=== PATIENT | male | born 1970 | race Hispanic/Latino ===

== ENCOUNTER 2019-07-15 07:46 | Emergency (ER) | payer OTHER ==
[2019-07-15 08:42] LABS: BASOPHILS % (AUTO) 0.8 % (0.0-5.0); HEMATOCRIT 39.7 % (42-54); LYMPHOCYTES % (AUTO) 31.9 % (21.0-51.0); MEAN CORPUSCULAR HEMOGLOBIN 32.5 pg (27.0-33.0); MEAN CORPUSCULAR HGB CONC 34.6 g/dL (32.0-36.0); MEAN CORPUSCULAR VOLUME 93.9 fL (79-99); MONOCYTES % (AUTO) 10.4 % (3.0-13.0); NEUTROPHILS % (AUTO) 53.9 % (40.0-77.0); PLATELET COUNT (AUTO) 167 K/uL (130-400); RED BLOOD CELL COUNT(AUTO) 4.23 MIL/uL (4.50-6.20); RED CELL DISTRIBUTION WIDTH 12.6 % (11.0-15.5); WHITE BLOOD COUNT (AUTO) 6.1 K/uL (4.8-10.8)
[2019-07-15 08:50] LABS: POTASSIUM 4.2 mmol/L (3.5-5.1)
[2019-07-15 08:57] LABS: ALBUMIN 3.6 g/dL (3.5-5.0); BILIRUBIN,DIRECT 0.1 mg/dL (0.0-0.3); BILIRUBIN,TOTAL 0.6 mg/dL (0.2-1.0)
[2019-07-15 09:05] LABS: INR 0.95 (0.85-1.15); PARTIAL THROMBOPLASTIN TIME 24.3 SEC (26.3-35.5)
== END 2019-07-15 10:47 | disposition home or self-care (01) ==
LOC: EDH 07:46
DX: G62.89 Other specified polyneuropathies (principal); I10 Essential (primary) hypertension; E11.9 Type 2 diabetes mellitus without complications; Z72.0 Tobacco use
CPT/HCPCS: 36415; 80048; 80076; 82550; 85025; 85610; 85730; 93005; 93925

== ENCOUNTER 2020-07-13 10:44 | Emergency (ER) | payer OTHER ==
[2020-07-13 11:23] LABS: BASOPHILS % (AUTO) 0.9 % (0.0-5.0); EOSINOPHILS % (AUTO) 1.2 % (0.0-8.0); HEMATOCRIT 42.1 % (42-54); LYMPHOCYTES % (AUTO) 29.9 % (21.0-51.0); MEAN CORPUSCULAR HEMOGLOBIN 30.8 pg (27.0-33.0); MEAN CORPUSCULAR HGB CONC 34.9 g/dL (32.0-36.0); MEAN CORPUSCULAR VOLUME 88.1 fL (79-99); MONOCYTES % (AUTO) 11.6 % (3.0-13.0); PLATELET COUNT (AUTO) 187 K/uL (130-400); RED BLOOD CELL COUNT(AUTO) 4.78 MIL/uL (4.50-6.20); RED CELL DISTRIBUTION WIDTH 11.8 % (11.0-15.5); WHITE BLOOD COUNT (AUTO) 6.9 K/uL (4.8-10.8)
[2020-07-13 11:31] LABS: CREATININE 1.1 mg/dL (0.5-1.5); POTASSIUM 4.2 mmol/L (3.5-5.1)
[2020-07-13 11:32] LABS: HEMOGLOBIN A1C 10.6 % (4.0-6.0)
[2020-07-13 11:35] LABS: ALBUMIN 4.2 g/dL (3.5-5.0); BILIRUBIN,TOTAL 0.6 mg/dL (0.2-1.0); TOTAL PROTEIN, SERUM 8.1 g/dL (6.0-8.3)
== END 2020-07-13 12:29 | disposition home or self-care (01) ==
LOC: EDH 10:44
DX: E11.40 Type 2 diabetes mellitus with diabetic neuropathy, unspecified (principal); M54.16 Radiculopathy, lumbar region; I10 Essential (primary) hypertension; Z90.49 Acquired absence of other specified parts of digestive tract; Z72.0 Tobacco use
CPT/HCPCS: 36415; 80053; 82948; 83036; 85025

== ENCOUNTER 2021-01-29 12:18 | Emergency (ER) | payer OTHER ==
[~2021-01-29] VITALS: Ht 182.9 cm; Wt 83.9 kg
[2021-01-29] MEDS ORDERED: BISACODYL 10 MG SUPP.RECT RC ONE (15:00)
[2021-01-29 15:41] VITALS: BP 142/94
[2021-01-29] MEDS ORDERED: POLY17PO4 PO (17:03)
[2021-01-29 17:19] VITALS: BP 159/90
== END 2021-01-29 17:22 | disposition home or self-care (01) ==
LOC: EDH 12:18
DX: K59.00 Constipation, unspecified (principal); E11.40 Type 2 diabetes mellitus with diabetic neuropathy, unspecified; Z87.891 Personal history of nicotine dependence; F19.10 Other psychoactive substance abuse, uncomplicated
CPT/HCPCS: 99282

== ENCOUNTER 2021-02-07 10:59 | Inpatient (IN) | payer OTHER ==
[~2021-02-07] VITALS: Ht 182.9 cm; Wt 78.2 kg
[~2021-02-07 10:59] MED LIST: POLY17PO4 PO
[2021-02-07 11:01] VITALS: BP 116/88
[2021-02-07 11:20] LABS: BASOPHILS % (AUTO) 0.8 % (0.0-5.0); EOSINOPHILS % (AUTO) 1.4 % (0.0-8.0); HEMATOCRIT 45.8 % (42-54); LYMPHOCYTES % (AUTO) 27.2 % (21.0-51.0); MEAN CORPUSCULAR HEMOGLOBIN 29.7 pg (27.0-33.0); MEAN CORPUSCULAR HGB CONC 33.8 g/dL (32.0-36.0); MEAN CORPUSCULAR VOLUME 87.7 fL (79-99); MONOCYTES % (AUTO) 9.1 % (3.0-13.0); PLATELET COUNT (AUTO) 216 K/uL (130-400); RED BLOOD CELL COUNT(AUTO) 5.22 MIL/uL (4.50-6.20); WHITE BLOOD COUNT (AUTO) 8.5 K/uL (4.8-10.8)
[2021-02-07 11:27] LABS: CREATININE 1.2 mg/dL (0.5-1.5); POTASSIUM 4.8 mmol/L (3.5-5.1)
[2021-02-07 11:32] LABS: ALBUMIN 4.2 g/dL (3.5-5.0); BILIRUBIN,TOTAL 0.9 mg/dL (0.2-1.0); TOTAL PROTEIN, SERUM 8.8 g/dL (6.0-8.3)
[2021-02-07] MEDS ORDERED: NACL 0.9% 1000ML 1,000 ML IV SCH (13:30)
[2021-02-07] MEDS ORDERED: MORPHINE 2 MG SYG IVP SCH (13:30)
[2021-02-07] MEDS ORDERED: ONDANSETRON 4MG INJ IVP SCH (13:30)
[2021-02-07] MEDS ORDERED: LACTULOSE 20 GM/30 ML UDCUP PO PRN (14:30)
[2021-02-07] MEDS ORDERED: ACETAMINOPHEN 325 MG TAB PO PRN ×2 (14:30)
[2021-02-07] MEDS: NACL 0.9% 1000ML 1,000 ML IV SCH ×2 (14:40→16:06)
[2021-02-07] MEDS: ONDANSETRON 4MG INJ IV PRN (14:40)
[2021-02-07] MEDS ORDERED: MORPHINE 2 MG SYG IVP PRN (14:45)
[2021-02-07 14:56] LABS: HEMOGLOBIN A1C 11.9 % (4.0-6.0)
[2021-02-07 14:57] LABS: CHOLESTEROL 239 mg/dL (<200); HDL CHOLESTEROL 55 mg/dL (29-71); LDL DIRECT 151 mg/dL (0-99); TRIGLYCERIDES 162 mg/dL (30-200)
[2021-02-07] MEDS ORDERED: NACL 0.9% 1000ML 1,000 ML IV ONE (16:02)
[2021-02-07 16:24] VITALS: BP 144/88
[2021-02-07] MEDS ORDERED: LOSA50TA64 PO (17:11)
[2021-02-07] MEDS ORDERED: GABA300S PO (17:11)
[2021-02-07] MEDS ORDERED: METF-444 PO (17:11)
[2021-02-07 17:30] VITALS: BP 162/96
[2021-02-07 19:07] VITALS: BP 144/88
[2021-02-07] MEDS: FAMOTIDINE 20MG VIAL IV SCH (20:57)
[2021-02-07] MEDS ORDERED: INSULIN GLARGINE 100 UNITS/ML 10 ML VIAL SQ SCH (21:00)
[2021-02-07] MEDS: INSULIN HUMULIN R 100 UNIT/ML 3ML SQ SCH (21:07)
[2021-02-07 23:39] VITALS: BP 136/82
[2021-02-08 00:17] LABS: AMPHET/METH SCREEN,URINE NEGATIVE (NEGATIVE); BARBITURATE SCREEN, URINE NEGATIVE (NEGATIVE); BENZODIAZEPINES SCREEN,URINE NEGATIVE (NEGATIVE); CANNABINOID SCREEN,URINE POSITIVE (NEGATIVE); COCAINE SCREEN,URINE POSITIVE (NEGATIVE); OPIATE SCREEN,URINE NEGATIVE (NEGATIVE); PHENCYCLIDINE SCREEN,URINE NEGATIVE (NEGATIVE)
[2021-02-08] MEDS: ONDANSETRON 4MG INJ IV PRN ×3 (03:08→09:48)
[2021-02-08 03:20] VITALS: BP 142/85
[2021-02-08 03:50] LABS: BASOPHILS % (AUTO) 0.8 % (0.0-5.0); EOSINOPHILS % (AUTO) 1.9 % (0.0-8.0); HEMATOCRIT 39.7 % (42-54); LYMPHOCYTES % (AUTO) 34.6 % (21.0-51.0); MEAN CORPUSCULAR HEMOGLOBIN 30.9 pg (27.0-33.0); MEAN CORPUSCULAR HGB CONC 34.8 g/dL (32.0-36.0); NEUTROPHILS % (AUTO) 52.3 % (40.0-77.0); PLATELET COUNT (AUTO) 175 K/uL (130-400); RED BLOOD CELL COUNT(AUTO) 4.46 MIL/uL (4.50-6.20); WHITE BLOOD COUNT (AUTO) 7.8 K/uL (4.8-10.8)
[2021-02-08 04:07] LABS: POTASSIUM 3.8 mmol/L (3.5-5.1)
[2021-02-08] MEDS: INSULIN HUMULIN R 100 UNIT/ML 3ML SQ SCH ×4 (06:21→16:14)
[2021-02-08 08:07] VITALS: BP 141/96
[2021-02-08] MEDS ORDERED: ENOXAPARIN SODIUM 40 MG/0.4 ML SYRINGE SQ SCH (09:00)
[2021-02-08] MEDS: FAMOTIDINE 20MG VIAL IV SCH (09:39)
[2021-02-08 11:00] VITALS: BP 150/95
[2021-02-08] MEDS ORDERED: HYDROCODONE/ACETAMINOPHEN 5/325 MG TAB PO PRN (11:00)
[2021-02-08] MEDS: NACL 0.9% 1000ML 1,000 ML IV SCH (11:44)
[2021-02-08 15:00] VITALS: BP 139/85
== END 2021-02-08 17:22 | disposition home or self-care (01) | DRG 439 ==
LOC: EDH 10:59 → EDHIP 14:18 → 4DH 16:13
PROVIDERS: ADMIT Internal Medicine; ATTEND Internal Medicine
DX: K85.90 Acute pancreatitis without necrosis or infection, unspecified (principal); E87.1 Hypo-osmolality and hyponatremia; E11.9 Type 2 diabetes mellitus without complications; E86.0 Dehydration; I10 Essential (primary) hypertension; K59.00 Constipation, unspecified; K76.0 Fatty (change of) liver, not elsewhere classified; Z90.49 Acquired absence of other specified parts of digestive tract
CPT/HCPCS: 36415; 74021; 74176; 76705; 80048; 80053; 80061; 80305; 82150; 82948; 83036; 83690; 85025; G0378; J1650; J1815; J2405; J3490; J7030

== ENCOUNTER 2021-02-14 04:04 | Observation (INO) | payer OTHER ==
[~2021-02-14] VITALS: Ht 170.2 cm; Wt 77.3 kg
[~2021-02-14 04:04] MED LIST changes: +GABA300S PO; +LOSA50TA64 PO; +METF-444 PO; -POLY17PO4 PO
[2021-02-14 04:37] LABS: BASOPHILS % (AUTO) 0.6 % (0.0-5.0); EOSINOPHILS % (AUTO) 1.7 % (0.0-8.0); HEMATOCRIT 41.1 % (42-54); LYMPHOCYTES % (AUTO) 29.2 % (21.0-51.0); MEAN CORPUSCULAR HEMOGLOBIN 30.3 pg (27.0-33.0); MEAN CORPUSCULAR HGB CONC 34.8 g/dL (32.0-36.0); MEAN CORPUSCULAR VOLUME 87.1 fL (79-99); MONOCYTES % (AUTO) 10.8 % (3.0-13.0); NEUTROPHILS % (AUTO) 57.2 % (40.0-77.0); PLATELET COUNT (AUTO) 205 K/uL (130-400); RED BLOOD CELL COUNT(AUTO) 4.72 MIL/uL (4.50-6.20); RED CELL DISTRIBUTION WIDTH 11.9 % (11.0-15.5); WHITE BLOOD COUNT (AUTO) 9.3 K/uL (4.8-10.8)
[2021-02-14] MEDS ORDERED: ONDANSETRON 4MG INJ ONE (04:37)
[2021-02-14] MEDS ORDERED: MORPHINE 4 MG SYG ONE (04:37)
[2021-02-14] MEDS ORDERED: 0.9%NACL 1000ML 777 ML IV ONE (04:45)
[2021-02-14] MEDS ORDERED: MORPHINE 4 MG SYG IM ONE ×2 (04:45→05:45)
[2021-02-14] MEDS ORDERED: ONDANSETRON 4MG INJ IVP ONE (04:45)
[2021-02-14 04:46] LABS: POTASSIUM 3.9 mmol/L (3.5-5.1)
[2021-02-14 04:50] LABS: ALBUMIN 3.9 g/dL (3.5-5.0); BILIRUBIN,TOTAL 0.6 mg/dL (0.2-1.0)
[2021-02-14 04:56] LABS: APPEARANCE,URINE Clear (CLEAR); BILIRUBIN,URINE Negative (NEGATIVE); COLOR,URINE Yellow (YELLOW); GLUCOSE, URINE (UA) >=1000 mg/dL (NEGATIVE); KETONES,URINE 15 mg/dL (NEGATIVE); LEUKOCYTE ESTERASE ,URINE Negative (NEGATIVE); NITRATE,URINE Negative (NEGATIVE); OCCULT BLOOD,URINE Negative (NEGATIVE); PH,URINE 6.5 (5.0-8.0); PROTEIN,URINE Negative (NEGATIVE)
[2021-02-14 05:03] LABS: AMPHET/METH SCREEN,URINE NEGATIVE (NEGATIVE); BACTERIA,URINE None Seen /HPF (None Seen); BARBITURATE SCREEN, URINE NEGATIVE (NEGATIVE); BENZODIAZEPINES SCREEN,URINE NEGATIVE (NEGATIVE); CANNABINOID SCREEN,URINE POSITIVE (NEGATIVE); COCAINE SCREEN,URINE NEGATIVE (NEGATIVE); OPIATE SCREEN,URINE NEGATIVE (NEGATIVE); PHENCYCLIDINE SCREEN,URINE NEGATIVE (NEGATIVE); RBC,URINE None Seen /HPF (0-1); SQUAMOUS EPITHELIAL CELL,UR Rare /HPF (0-2); WBC,URINE None Seen /HPF (0-1); YEAST,URINE BUDDING None Seen /HPF (None Seen)
[2021-02-14] MEDS ORDERED: PROCHLORPERAZINE 10MG/2ML INJ IV ONE (05:45)
[2021-02-14 05:53] VITALS: BP 165/89
[2021-02-14] MEDS ORDERED: ACETAMINOPHEN 325 MG TAB PO PRN ×2 (06:45)
[2021-02-14] MEDS ORDERED: HYDRALAZINE 20MG/ML VIAL IV PRN (06:45)
[2021-02-14] MEDS ORDERED: LACTULOSE 20 GM/30 ML UDCUP PO PRN (06:45)
[2021-02-14] MEDS: 0.9%NACL 1000ML 1,000 ML IV SCH ×3 (07:04→20:05)
[2021-02-14 08:40] LABS: POTASSIUM 4.4 mmol/L (3.5-5.1)
[2021-02-14] MEDS ORDERED: LINAGLIPTIN 5 MG TABLET PO SCH (09:00)
[2021-02-14] MEDS: ENOXAPARIN SODIUM 40 MG/0.4 ML SYRINGE SQ SCH (09:05)
[2021-02-14] MEDS: FAMOTIDINE 20MG VIAL IV SCH ×2 (09:05→21:00)
[2021-02-14] MEDS: INSULIN HUMULIN R 100 UNIT/ML 3ML SQ SCH ×2 (12:00→18:00)
[2021-02-14 12:43] VITALS: BP 145/89
[2021-02-14 18:01] LABS: POTASSIUM 4.4 mmol/L (3.5-5.1)
[2021-02-14 18:52] VITALS: BP 145/89
[2021-02-14 19:25] VITALS: BP 126/74
[2021-02-14] MEDS ORDERED: INSULIN GLARGINE 100 UNITS/ML 10 ML VIAL SQ SCH (21:00)
[2021-02-14] MEDS: INSULIN GLARGINE 100 UNITS/ML 10 ML VIAL SQ SCH (22:00)
[2021-02-14 23:00] VITALS: BP 126/77
[2021-02-15] MEDS: INSULIN HUMULIN R 100 UNIT/ML 3ML SQ SCH ×8 (00:14→17:54)
[2021-02-15] MEDS: 0.9%NACL 1000ML 1,000 ML IV SCH ×4 (02:45→23:08)
[2021-02-15 06:36] LABS: CREATININE 0.9 mg/dL (0.5-1.5); POTASSIUM 3.6 mmol/L (3.5-5.1)
[2021-02-15 06:45] LABS: BASOPHILS % (AUTO) 0.6 % (0.0-5.0); HEMATOCRIT 41.1 % (42-54); LYMPHOCYTES % (AUTO) 26.6 % (21.0-51.0); MEAN CORPUSCULAR HEMOGLOBIN 30.4 pg (27.0-33.0); MEAN CORPUSCULAR HGB CONC 34.8 g/dL (32.0-36.0); MEAN CORPUSCULAR VOLUME 87.3 fL (79-99); MONOCYTES % (AUTO) 9.6 % (3.0-13.0); NEUTROPHILS % (AUTO) 60.8 % (40.0-77.0); PLATELET COUNT (AUTO) 201 K/uL (130-400); RED BLOOD CELL COUNT(AUTO) 4.71 MIL/uL (4.50-6.20); RED CELL DISTRIBUTION WIDTH 11.9 % (11.0-15.5); WHITE BLOOD COUNT (AUTO) 8.1 K/uL (4.8-10.8)
[2021-02-15] MEDS: ONDANSETRON 4MG INJ IV PRN ×4 (06:54→21:18)
[2021-02-15] MEDS: FAMOTIDINE 20MG VIAL IV SCH ×2 (08:51→21:08)
[2021-02-15] MEDS: ENOXAPARIN SODIUM 40 MG/0.4 ML SYRINGE SQ SCH (08:51)
[2021-02-15 08:54] VITALS: BP 173/105
[2021-02-15] MEDS: MORPHINE 2 MG SYG IV PRN ×3 (10:01→21:09)
[2021-02-15] MEDS: LOSARTAN 50 MG TABLET PO SCH ×2 (10:25→21:08)
[2021-02-15 12:39] VITALS: BP 163/103
[2021-02-15 16:39] VITALS: BP_SYST 102; BP_SYST 153; BP_DIAS 72; BP_DIAS 99
[2021-02-15] MEDS: INSULIN GLARGINE 100 UNITS/ML 10 ML VIAL SQ SCH (21:16)
[2021-02-15 21:34] VITALS: BP 155/80
[2021-02-15 22:46] VITALS: BP 136/98
[2021-02-16 03:45] VITALS: BP 151/88
[2021-02-16] MEDS: 0.9%NACL 1000ML 1,000 ML IV SCH (05:07)
[2021-02-16] MEDS: INSULIN HUMULIN R 100 UNIT/ML 3ML SQ SCH ×5 (05:29→11:38)
[2021-02-16 05:38] LABS: BASOPHILS % (AUTO) 0.5 % (0.0-5.0); EOSINOPHILS % (AUTO) 1.4 % (0.0-8.0); HEMATOCRIT 42.1 % (42-54); LYMPHOCYTES % (AUTO) 21.9 % (21.0-51.0); MEAN CORPUSCULAR HEMOGLOBIN 30.5 pg (27.0-33.0); MEAN CORPUSCULAR HGB CONC 34.7 g/dL (32.0-36.0); MEAN CORPUSCULAR VOLUME 88.1 fL (79-99); MONOCYTES % (AUTO) 10.3 % (3.0-13.0); NEUTROPHILS % (AUTO) 65.4 % (40.0-77.0); PLATELET COUNT (AUTO) 207 K/uL (130-400); RED BLOOD CELL COUNT(AUTO) 4.78 MIL/uL (4.50-6.20); RED CELL DISTRIBUTION WIDTH 11.9 % (11.0-15.5); WHITE BLOOD COUNT (AUTO) 9.3 K/uL (4.8-10.8)
[2021-02-16] MEDS: ONDANSETRON 4MG INJ IV PRN (05:39)
[2021-02-16 05:56] LABS: CREATININE 0.9 mg/dL (0.5-1.5); POTASSIUM 3.8 mmol/L (3.5-5.1)
[2021-02-16 07:00] VITALS: BP 148/94
[2021-02-16] MEDS: LOSARTAN 50 MG TABLET PO SCH (09:57)
[2021-02-16] MEDS: FAMOTIDINE 20MG VIAL IV SCH (09:57)
[2021-02-16] MEDS: ENOXAPARIN SODIUM 40 MG/0.4 ML SYRINGE SQ SCH (09:58)
[2021-02-16 11:00] VITALS: BP 148/85
[2021-02-16] MEDS ORDERED: GLIM2TAB30 PO ×2 (12:34)
[2021-02-16] MEDS ORDERED: INSLAN SQ ×2 (12:34)
[2021-02-16] MEDS ORDERED: METF-446 PO ×2 (12:34)
== END 2021-02-16 15:13 | disposition home or self-care (01) ==
LOC: EDH 04:04 → EDHIP 06:45 → 4CH 02-15 22:00
PROVIDERS: ADMIT Family Medicine; ATTEND Family Medicine
DX: K85.90 Acute pancreatitis without necrosis or infection, unspecified (principal); K86.1 Other chronic pancreatitis; I10 Essential (primary) hypertension; E11.65 Type 2 diabetes mellitus with hyperglycemia; E87.1 Hypo-osmolality and hyponatremia; Z79.4 Long term (current) use of insulin; Z90.49 Acquired absence of other specified parts of digestive tract
CPT/HCPCS: 36415 ×3; 74176; 80048 ×4; 80053; 80305; 81001; 82948 ×9; 83690 ×2; 84484; 85025 ×3; 93005; 96361 ×3; 96372 ×3; 96374; 96375 ×2; 96376 ×2; 99285; G0378 ×54; J0360 ×2; J0780; J1650 ×3; J1815 ×3; J2270 ×2; J2405 ×7; J3490 ×5

== ENCOUNTER 2021-03-09 11:49 | Emergency (ER) | payer OTHER ==
[~2021-03-09] VITALS: Ht 182.9 cm; Wt 79.4 kg
[~2021-03-09 11:49] MED LIST changes: +GLIM2TAB30 PO; +INSLAN SQ; +METF-446 PO
[2021-03-09 11:51] VITALS: BP 137/92
[2021-03-09 12:34] LABS: BASOPHILS % (AUTO) 0.6 % (0.0-5.0); EOSINOPHILS % (AUTO) 0.7 % (0.0-8.0); HEMATOCRIT 47.8 % (42-54); LYMPHOCYTES % (AUTO) 24.3 % (21.0-51.0); MEAN CORPUSCULAR HEMOGLOBIN 30.5 pg (27.0-33.0); MEAN CORPUSCULAR HGB CONC 33.7 g/dL (32.0-36.0); MEAN CORPUSCULAR VOLUME 90.5 fL (79-99); MONOCYTES % (AUTO) 9.8 % (3.0-13.0); NEUTROPHILS % (AUTO) 64.4 % (40.0-77.0); PLATELET COUNT (AUTO) 229 K/uL (130-400); RED BLOOD CELL COUNT(AUTO) 5.28 MIL/uL (4.50-6.20); RED CELL DISTRIBUTION WIDTH 12.1 % (11.0-15.5); WHITE BLOOD COUNT (AUTO) 8.1 K/uL (4.8-10.8)
[2021-03-09 12:45] LABS: CARBON DIOXIDE 26 mmol/L (21-32); CHLORIDE 99 mmol/L (101-111); CREATININE 1.1 mg/dL (0.5-1.5); GLOMERULAR FILTR. RATE CALC 75 mL/min (>60); GLUCOSE,RANDOM 149 mg/dL (70-105); POTASSIUM 3.8 mmol/L (3.5-5.1); SODIUM SERUM 136 mmol/L (136-145); UREA NITROGEN, BLOOD 17 mg/dL (7-18)
[2021-03-09 12:50] LABS: ALANINE AMINOTRANSFERASE 26 U/L (12-78); ALBUMIN 4.2 g/dL (3.5-5.0); AMYLASE 45 U/L (25-115); ASPARTATE AMINOTRANSFERASE 13 U/L (10-37); CREATINE KINASE, TOTAL 53 U/L (21-232); TOTAL PROTEIN, SERUM 8.6 g/dL (6.0-8.3)
[2021-03-09] MEDS ORDERED: DICYCLOMINE 20MG (10MG/ML) AMP IM STA (12:51)
[2021-03-09 12:54] LABS: LIPASE < 50 U/L (114-286)
[2021-03-09] MEDS ORDERED: PROMETHAZINE HCL 25 MG/ML 1ML AMPULE IM ONE (13:00)
[2021-03-09] MEDS ORDERED: 0.9%NACL 1000ML 1,000 ML IV ONE ×2 (13:00→13:13)
[2021-03-09 13:25] LABS: APPEARANCE,URINE Clear (CLEAR); BILIRUBIN,URINE Negative (NEGATIVE); COLOR,URINE Yellow (YELLOW); GLUCOSE, URINE (UA) Negative (NEGATIVE); KETONES,URINE 15 mg/dL (NEGATIVE); LEUKOCYTE ESTERASE ,URINE Negative (NEGATIVE); NITRATE,URINE Negative (NEGATIVE); OCCULT BLOOD,URINE Negative (NEGATIVE); PH,URINE 5.5 (5.0-8.0); PROTEIN,URINE POS 1+ mg/dL (NEGATIVE)
[2021-03-09 13:35] LABS: BACTERIA,URINE Rare /HPF (None Seen); RBC,URINE 0-1 /HPF (0-1); SQUAMOUS EPITHELIAL CELL,UR Rare /HPF (0-2); WBC,URINE 0-1 /HPF (0-1)
[2021-03-09 13:37] LABS: AMPHET/METH SCREEN,URINE NEGATIVE (NEGATIVE); BARBITURATE SCREEN, URINE NEGATIVE (NEGATIVE); BENZODIAZEPINES SCREEN,URINE NEGATIVE (NEGATIVE); CANNABINOID SCREEN,URINE POSITIVE (NEGATIVE); COCAINE SCREEN,URINE POSITIVE (NEGATIVE); OPIATE SCREEN,URINE NEGATIVE (NEGATIVE); PHENCYCLIDINE SCREEN,URINE NEGATIVE (NEGATIVE)
[2021-03-09] MEDS ORDERED: DICY20TA2 PO (14:43)
[2021-03-09] MEDS ORDERED: ONDA4TAB10 PO (14:43)
[2021-03-09 14:49] VITALS: BP 121/86
== END 2021-03-09 14:57 | disposition home or self-care (01) ==
LOC: EDH 11:49
DX: R10.84 Generalized abdominal pain (principal); F14.10 Cocaine abuse, uncomplicated; F12.10 Cannabis abuse, uncomplicated; I10 Essential (primary) hypertension; E78.00 Pure hypercholesterolemia, unspecified; E11.9 Type 2 diabetes mellitus without complications; Z79.899 Other long term (current) drug therapy; Z79.4 Long term (current) use of insulin
CPT/HCPCS: 36415; 80053; 80305; 81001; 82150; 82550; 83690; 85025; 87088; 93005; 96360; 96372 ×2; 99284; J0500; J2550; J7030